=== PATIENT | male | born 1940 | race African-American/Black ===

== ENCOUNTER 2019-03-29 13:12 | Inpatient (IN) ==
[2019-03-29] MEDS ORDERED: hydrALAZINE 20 MG/1 ML VIAL IV STA (13:56)
[2019-03-29 14:56] LABS: Basophils # 0.1 10*3/uL (0.0-0.2); Basophils % 0.4 % (0.0-0.8); Eosinophils # 0.2 10*3/uL (0.0-0.87); Eosinophils % 1.9 % (0.00-10.9); Hematocrit 30.8 VOL% (42.0-52.0); Hemoglobin 9.3 GM/DL (14.0-18.0); Immature Granulocytes % 0.3 %; Immature Granulocytes Absolute 0.03 #; Lymphocytes # 0.6 10*3/uL (1.4-4.0); Lymphocytes % 5.3 % (21.2-54.2); Mean Corpuscular HGB Conc 30.2 GM/DL (32-36); Mean Corpuscular Volume 80.2 FL (87-102); Mean Platelet Volume 11.7 FL (9.6-12.0); Monocytes % 6.5 % (1.7-12.7); Neutrophils % 85.6 % (38.7-73.9); Platelet Count 172 T/CUMM (130-400); Red Blood Count 3.84 MC/CUMM (3.8-5.5); Red Cell Distribution Width 18.9 % (9.3-17.3); White Blood Count 11.3 T/CUMM (4-12)
[2019-03-29 15:24] LABS: Albumin 3.1 G/DL (3.4-5.0); Bilirubin,Total 1.3 MG/DL (0.2-1.0); Calcium 8.4 MG/DL (8.5-10.1); Osmolality,Calculated 276.1 MOS/KG (273-304); Thyroid Stimulating Hormone 1.48 uIU/ml (0.358-3.74)
[2019-03-29 15:30] LABS: Vitamin B12 1293 PG/ML (211-911)
[2019-03-29] MEDS ORDERED: ONDANSETRON 4 MG/2 ML VIAL IV STA (16:12)
[2019-03-29] MEDS ORDERED: ONDANSETRON 4 MG/2 ML VIAL ONE (16:13)
[2019-03-29] MEDS ORDERED: LACTULOSE 20 GM/30 ML UDCUP PO PRN (16:21)
[2019-03-29] MEDS ORDERED: ACETAMINOPHEN 325 MG TABLET PO PRN (16:21)
[2019-03-29] MEDS ORDERED: ONDANSETRON 4 MG/2 ML VIAL IV PRN (16:21)
[2019-03-29] MEDS ORDERED: GLUCAGON 1 MG VIAL IM PRN (16:21)
[2019-03-29] MEDS ORDERED: DEXTROSE 10% 250 ML BAG IV PRN (16:21)
[2019-03-29 16:47] LABS: Risk Ratio 2.47; VLDL CHOLESTEROL 15.2 MG/DL
[2019-03-29] MEDS: INSULIN REGULAR 100 UNIT/ML SUBCUT SCH ×2 (18:27→20:00)
[2019-03-29] MEDS: HEPARIN 5,000 UNIT/1 ML VIAL SUBCUT SCH (18:32)
[2019-03-29] MEDS: cloNIDine 0.1 MG TABLET PO SCH (21:12)
[2019-03-29] MEDS: PIPERACILLIN/TAZOBACTAM 3,375 MG in SODIUM CHLORIDE 0.9% 100 ML IV SCH (21:15)
[2019-03-29 21:48] LABS: Troponin I 0.028 NG/ML (0.00-0.045)
[2019-03-29] MEDS ORDERED: VANCOMYCIN INJ 1,750 MG in SODIUM CHLORIDE 0.9% 500 ML IV ONE (22:00)
[2019-03-30] MEDS: HEPARIN 5,000 UNIT/1 ML VIAL SUBCUT SCH ×3 (01:40→16:37)
[2019-03-30 05:03] LABS: Basophils # 0.1 10*3/uL (0.0-0.2); Basophils % 0.6 % (0.0-0.8); Eosinophils # 0.1 10*3/uL (0.0-0.87); Eosinophils % 1.3 % (0.00-10.9); Hematocrit 27.1 VOL% (42.0-52.0); Hemoglobin 8.4 GM/DL (14.0-18.0); Immature Granulocytes % 0.5 %; Immature Granulocytes Absolute 0.05 #; Lymphocytes # 0.6 10*3/uL (1.4-4.0); Lymphocytes % 6.2 % (21.2-54.2); Mean Corpuscular Volume 79.9 FL (87-102); Mean Platelet Volume 11.7 FL (9.6-12.0); Neutrophils % 82.4 % (38.7-73.9); Platelet Count 151 T/CUMM (130-400); Red Blood Count 3.39 MC/CUMM (3.8-5.5); Red Cell Distribution Width 18.9 % (9.3-17.3); White Blood Count 9.7 T/CUMM (4-12)
[2019-03-30 05:18] LABS: Calcium 7.9 MG/DL (8.5-10.1)
[2019-03-30] MEDS: INSULIN REGULAR 100 UNIT/ML SUBCUT SCH ×4 (10:27→21:18)
[2019-03-30] MEDS: PANTOPRAZOLE 40 MG TABLET PO SCH (10:32)
[2019-03-30] MEDS: cloNIDine 0.1 MG TABLET PO SCH ×2 (10:32→21:18)
[2019-03-30] MEDS: PIPERACILLIN/TAZOBACTAM 3,375 MG in SODIUM CHLORIDE 0.9% 100 ML IV SCH ×2 (10:34→21:17)
[2019-03-30] MEDS ORDERED: cloNIDine 0.1 MG TABLET PO ONE (12:02)
[2019-03-30] MEDS: ASPIRIN EC 81 MG TABLET PO SCH (12:36)
[2019-03-30] MEDS ORDERED: LORazepam 2 MG/1 ML VIAL IV ONE (14:00)
[2019-03-30] MEDS: FERROUS SULFATE 325 MG TABLET PO SCH ×2 (14:15→21:18)
[2019-03-30] MEDS: GABAPENTIN 100 MG CAPSULE PO SCH ×2 (14:15→21:18)
[2019-03-30] MEDS ORDERED: VANCOMYCIN INJ 750 MG in SODIUM CHLORIDE 0.9% 250 ML IV ONE (17:00)
[2019-03-30] MEDS ORDERED: VANCOMYCIN INJ 750 MG in SODIUM CHLORIDE 0.9% 250 ML IV PRN (17:00)
[2019-03-30] MEDS ORDERED: cloNIDine 0.1 MG TABLET PO PRN (18:00)
[2019-03-31] MEDS: HEPARIN 5,000 UNIT/1 ML VIAL SUBCUT SCH ×3 (00:50→17:21)
[2019-03-31 05:34] LABS: Calcium 8.3 MG/DL (8.5-10.1); Osmolality,Calculated 275.8 MOS/KG (273-304)
[2019-03-31 05:39] LABS: Basophils # 0.1 10*3/uL (0.0-0.2); Basophils % 0.3 % (0.0-0.8); Eosinophils # 0.1 10*3/uL (0.0-0.87); Eosinophils % 0.9 % (0.00-10.9); Hematocrit 25.7 VOL% (42.0-52.0); Immature Granulocytes % 0.5 %; Immature Granulocytes Absolute 0.08 #; Lymphocytes # 0.6 10*3/uL (1.4-4.0); Lymphocytes % 3.7 % (21.2-54.2); Mean Corpuscular HGB Conc 31.1 GM/DL (32-36); Mean Corpuscular Volume 80.3 FL (87-102); Mean Platelet Volume 11.8 FL (9.6-12.0); Monocytes % 5.6 % (1.7-12.7); Platelet Count 139 T/CUMM (130-400); Red Cell Distribution Width 18.8 % (9.3-17.3); White Blood Count 14.8 T/CUMM (4-12)
[2019-03-31 05:50] LABS: Hypochromasia 2+; Platelet Estimate Normal
[2019-03-31] MEDS: INSULIN REGULAR 100 UNIT/ML SUBCUT SCH ×4 (08:17→20:59)
[2019-03-31] MEDS: PIPERACILLIN/TAZOBACTAM 3,375 MG in SODIUM CHLORIDE 0.9% 100 ML IV SCH (09:12)
[2019-03-31] MEDS: GABAPENTIN 100 MG CAPSULE PO SCH ×3 (09:13→20:59)
[2019-03-31] MEDS: FERROUS SULFATE 325 MG TABLET PO SCH ×3 (09:13→20:59)
[2019-03-31] MEDS: PANTOPRAZOLE 40 MG TABLET PO SCH (09:13)
[2019-03-31] MEDS: ASPIRIN EC 81 MG TABLET PO SCH (09:13)
[2019-03-31] MEDS: cloNIDine 0.1 MG TABLET PO SCH ×2 (09:13→20:59)
[2019-03-31] MEDS ORDERED: cefTRIAXone 1,000 MG in SYRINGE 1 EACH IV SCH (17:30)
[2019-04-01] MEDS: HEPARIN 5,000 UNIT/1 ML VIAL SUBCUT SCH ×2 (00:34→14:01)
[2019-04-01 04:50] LABS: Basophils # 0.1 10*3/uL (0.0-0.2); Basophils % 0.8 % (0.0-0.8); Eosinophils # 0.4 10*3/uL (0.0-0.87); Eosinophils % 4.5 % (0.00-10.9); Hematocrit 24.9 VOL% (42.0-52.0); Hemoglobin 7.4 GM/DL (14.0-18.0); Immature Granulocytes % 0.4 %; Immature Granulocytes Absolute 0.03 #; Lymphocytes # 0.6 10*3/uL (1.4-4.0); Mean Corpuscular HGB Conc 29.7 GM/DL (32-36); Mean Corpuscular Volume 79.3 FL (87-102); Mean Platelet Volume 11.3 FL (9.6-12.0); Monocytes % 9.5 % (1.7-12.7); Neutrophils % 77.8 % (38.7-73.9); Platelet Count 147 T/CUMM (130-400); Red Blood Count 3.14 MC/CUMM (3.8-5.5); Red Cell Distribution Width 18.7 % (9.3-17.3)
[2019-04-01 05:16] LABS: Calcium 8.1 MG/DL (8.5-10.1); Osmolality,Calculated 280.8 MOS/KG (273-304)
[2019-04-01] MEDS: INSULIN REGULAR 100 UNIT/ML SUBCUT SCH ×2 (09:09→14:07)
[2019-04-01] MEDS ORDERED: TUBERCULIN SKIN TEST 0.1 ML SYRINGE INTRADERM ONE (10:57)
[2019-04-01 13:04] VITALS: BP 141/82
[2019-04-01] MEDS: cloNIDine 0.1 MG TABLET PO SCH (14:01)
[2019-04-01] MEDS: FERROUS SULFATE 325 MG TABLET PO SCH ×2 (14:01→14:11)
[2019-04-01] MEDS: GABAPENTIN 100 MG CAPSULE PO SCH ×2 (14:02→14:10)
[2019-04-01] MEDS: ASPIRIN EC 81 MG TABLET PO SCH (14:11)
[2019-04-01] MEDS: PANTOPRAZOLE 40 MG TABLET PO SCH (14:11)
== END 2019-04-01 15:30 | DRG 70 ==
LOC: N.ED 13:12 → N.EDINP 16:38 → SUATTDRO 16:38 → N.EDINP 17:30 → N.5E 17:41
PROVIDERS: ADMIT Internal Medicine; ATTEND Emergency Medicine

== ENCOUNTER 2019-07-24 13:24 | Observation (INO) ==
[2019-07-24 14:38] LABS: INR 1.1; PT Patient Result 12.2 SECS (9.6-12.2); Partial Thromboplastin Time 30.8 SECS (20.8-36.0)
[2019-07-24 14:59] LABS: Bilirubin,Total 1.7 MG/DL (0.2-1.0); Calcium 9.4 MG/DL (8.5-10.1); Total Protein 8.1 G/DL (6.4-8.3)
[2019-07-24 15:03] LABS: Basophils # 0.1 10*3/uL (0.0-0.2); Basophils % 0.6 % (0.0-0.8); Eosinophils # 0.7 10*3/uL (0.0-0.87); Eosinophils % 8.9 % (0.00-10.9); Hematocrit 34.4 VOL% (42.0-52.0); Immature Granulocytes % 0.3 %; Immature Granulocytes Absolute 0.02 #; Lymphocytes # 0.5 10*3/uL (1.4-4.0); Lymphocytes % 6.6 % (21.2-54.2); Mean Corpuscular Volume 81.9 FL (87-102); Mean Platelet Volume 10.9 FL (9.6-12.0); Monocytes % 8.2 % (1.7-12.7); Neutrophils % 75.4 % (38.7-73.9); Platelet Count 72 T/CUMM (130-400); White Blood Count 7.7 T/CUMM (4-12)
[2019-07-24 15:49] LABS: Giant Platelets Few; Platelet Estimate Decreased
[2019-07-24] MEDS: SILVER SULFADIAZINE 1% CREAM 25 GM TUBE TOP SCH (22:51)
[2019-07-25 05:34] LABS: Basophils # 0.1 10*3/uL (0.0-0.2); Eosinophils # 0.4 10*3/uL (0.0-0.87); Eosinophils % 7.5 % (0.00-10.9); Hematocrit 32.7 VOL% (42.0-52.0); Hemoglobin 10.4 GM/DL (14.0-18.0); Immature Granulocytes % 0.5 %; Immature Granulocytes Absolute 0.03 #; Lymphocytes # 0.8 10*3/uL (1.4-4.0); Lymphocytes % 13.3 % (21.2-54.2); Mean Corpuscular HGB Conc 31.8 GM/DL (32-36); Mean Corpuscular Volume 84.7 FL (87-102); Mean Platelet Volume 11.6 FL (9.6-12.0); Neutrophils % 64.7 % (38.7-73.9); Platelet Count 83 T/CUMM (130-400); Red Blood Count 3.86 MC/CUMM (3.8-5.5); Red Cell Distribution Width 17.6 % (9.3-17.3); White Blood Count 5.8 T/CUMM (4-12)
[2019-07-25 06:03] LABS: Calcium 9.1 MG/DL (8.5-10.1); Osmolality,Calculated 276.8 MOS/KG (273-304); Risk Ratio 2.42; Thyroid Stimulating Hormone 0.891 uIU/ml (0.358-3.74); VLDL CHOLESTEROL 11.4 MG/DL
[2019-07-25] MEDS: PANTOPRAZOLE 40 MG TABLET PO SCH (08:24)
[2019-07-25] MEDS: ENOXAPARIN 30 MG/0.3 ML SYRINGE SUBCUT SCH (08:27)
[2019-07-25] MEDS: SILVER SULFADIAZINE 1% CREAM 25 GM TUBE TOP SCH ×2 (08:27→22:21)
[2019-07-25] MEDS ORDERED: Sucroferric Oxyhydroxide [Velphoro] 500 MG PO SCH (15:00)
[2019-07-25] MEDS: GABAPENTIN 100 MG CAPSULE PO SCH ×2 (18:31→22:17)
[2019-07-25] MEDS: ACETAMINOPHEN 325 MG TABLET PO PRN (22:18)
[2019-07-25] MEDS: cloNIDine 0.1 MG TABLET PO SCH (22:18)
[2019-07-26 05:15] LABS: Basophils # 0.1 10*3/uL (0.0-0.2); Eosinophils # 0.3 10*3/uL (0.0-0.87); Hematocrit 32.5 VOL% (42.0-52.0); Hemoglobin 9.9 GM/DL (14.0-18.0); Immature Granulocytes % 0.2 %; Immature Granulocytes Absolute 0.01 #; Lymphocytes # 0.8 10*3/uL (1.4-4.0); Lymphocytes % 16.7 % (21.2-54.2); Mean Corpuscular HGB Conc 30.5 GM/DL (32-36); Mean Corpuscular Volume 82.5 FL (87-102); Monocytes % 12.4 % (1.7-12.7); Neutrophils % 62.7 % (38.7-73.9); Platelet Count 88 T/CUMM (130-400); Red Blood Count 3.94 MC/CUMM (3.8-5.5); Red Cell Distribution Width 16.8 % (9.3-17.3); White Blood Count 4.9 T/CUMM (4-12)
[2019-07-26 05:35] LABS: Hypochromasia 1+; Ovalocytes Slight; Platelet Estimate Decreased
[2019-07-26 05:36] LABS: Burr Cells Slight
[2019-07-26 05:43] LABS: Calcium 8.3 MG/DL (8.5-10.1); Osmolality,Calculated 277.1 MOS/KG (273-304)
[2019-07-26] MEDS ORDERED: ASPIRIN EC 81 MG TABLET PO SCH (09:00)
[2019-07-26] MEDS: GABAPENTIN 100 MG CAPSULE PO SCH (09:08)
[2019-07-26] MEDS: cloNIDine 0.1 MG TABLET PO SCH (09:09)
[2019-07-26] MEDS: ACETAMINOPHEN 325 MG TABLET PO PRN (09:09)
[2019-07-26] MEDS: PANTOPRAZOLE 40 MG TABLET PO SCH (09:09)
[2019-07-26] MEDS: ENOXAPARIN 30 MG/0.3 ML SYRINGE SUBCUT SCH (09:11)
[2019-07-26] MEDS: SILVER SULFADIAZINE 1% CREAM 25 GM TUBE TOP SCH (09:15)
[2019-07-26 11:58] VITALS: BP 184/78
== END 2019-07-26 14:20 | disposition home or self-care (01) ==
LOC: N.ED 13:24 → N.EDINP 13:24 → SUATTDRO 15:55 → N.3E 17:34
PROVIDERS: ADMIT Internal Medicine; ATTEND Internal Medicine

== ENCOUNTER 2019-09-08 14:23 | Inpatient (IN) ==
[2019-09-08 16:51] LABS: Basophils % 0.9 % (0.0-0.8); Eosinophils # 0.3 10*3/uL (0.0-0.87); Hematocrit 36.7 VOL% (42.0-52.0); Hemoglobin 11.6 GM/DL (14.0-18.0); Immature Granulocytes % 0.7 %; Immature Granulocytes Absolute 0.03 #; Lymphocytes # 0.9 10*3/uL (1.4-4.0); Lymphocytes % 21.1 % (21.2-54.2); Mean Corpuscular HGB Conc 31.6 GM/DL (32-36); Mean Corpuscular Volume 80.1 FL (87-102); Mean Platelet Volume 11.5 FL (9.6-12.0); Monocytes % 12.8 % (1.7-12.7); Neutrophils % 57.5 % (38.7-73.9); Platelet Count 154 T/CUMM (130-400); Red Blood Count 4.58 MC/CUMM (3.8-5.5); Red Cell Distribution Width 20.2 % (9.3-17.3); White Blood Count 4.5 T/CUMM (4-12)
[2019-09-08 16:58] LABS: Apearance,Urine Slightly Hazy (Clear); Bacteria,Urine Occasional /HPF (Few); Bilirubin,Urine Negative (Negative); Blood, Urine Large mg/dL (Negative); Glucose,Urine (UA) Negative (Negative); Hyaline Casts,Urine 1 /LPF (0-3); Ketones,Urine Negative (Negative); Nitrite,Urine Negative (Negative); Protein,Urine 100 MG/DL; RBC,Urine 117 /HPF (0-4); Squamous Epithelial Cell,Urine Occasional /HPF (0-10); Urine Color Yellow (Yellow); Urine Specific Gravity 1.008 (1.001-1.035); Urine Urobilinogen < 2.0 EU/DL (0.2-1.0); WBC,Urine 147 /HPF (0-6)
[2019-09-08 17:01] LABS: Albumin 2.6 G/DL (3.4-5.0); Bilirubin,Total 1.4 MG/DL (0.2-1.0); Calcium 8.5 MG/DL (8.5-10.1); Osmolality,Calculated 277.2 MOS/KG (273-304); Total Protein 8.6 G/DL (6.4-8.3)
[2019-09-08] MEDS ORDERED: cefTRIAXone 1,000 MG in SODIUM CHLORIDE 0.9% 100 ML IV STA (17:11)
[2019-09-08] MEDS ORDERED: VANCOMYCIN INJ 1,000 MG in SODIUM CHLORIDE 0.9% 250 ML IV STA ×2 (17:11→17:13)
[2019-09-08] MEDS ORDERED: ONDANSETRON 4 MG/2 ML VIAL IV PRN (17:59)
[2019-09-08] MEDS ORDERED: DEXTROSE 10% 250 ML BAG IV PRN (17:59)
[2019-09-08] MEDS ORDERED: ACETAMINOPHEN 325 MG TABLET PO PRN (17:59)
[2019-09-08] MEDS ORDERED: GLUCAGON 1 MG VIAL IM PRN (17:59)
[2019-09-08] MEDS: ALBUTEROL/IPRATROPIUM 3 ML NEB RESP TX SCH (19:03)
[2019-09-08 19:34] LABS: Platelet Estimate Normal
[2019-09-08 19:35] LABS: Anisocytosis 2+; Poikilocytosis Slight; Polychromasia 1+; Target Cells Slight
[2019-09-08 19:36] LABS: Hypochromasia 2+; Microcytosis 1+; Schistocytes Few
[2019-09-08 19:37] LABS: Spherocytes 1+
[2019-09-08] MEDS: cloNIDine 0.1 MG TABLET PO SCH (22:12)
[2019-09-08] MEDS: HEPARIN 5,000 UNIT/1 ML VIAL SUBCUT SCH (22:12)
[2019-09-08] MEDS: INSULIN REGULAR 100 UNIT/ML SUBCUT SCH (22:12)
[2019-09-08] MEDS: LACTULOSE 20 GM/30 ML UDCUP PO SCH (22:12)
[2019-09-09] MEDS ORDERED: LEVOFLOXACIN INJ 500 MG in PREMIX 1 EACH IV ONE
[2019-09-09] MEDS: ALBUTEROL/IPRATROPIUM 3 ML NEB RESP TX SCH ×4 (00:20→20:25)
[2019-09-09] MEDS: PIPERACILLIN/TAZOBACTAM 3,375 MG in SODIUM CHLORIDE 0.9% 100 ML IV SCH ×2 (00:56→15:55)
[2019-09-09] MEDS ORDERED: VANCOMYCIN INJ 750 MG in SODIUM CHLORIDE 0.9% 250 ML IV ONE ×2 (04:00→17:00)
[2019-09-09] MEDS: HEPARIN 5,000 UNIT/1 ML VIAL SUBCUT SCH ×3 (04:31→21:44)
[2019-09-09 05:32] LABS: Basophils % 0.4 % (0.0-0.8); Eosinophils # 0.3 10*3/uL (0.0-0.87); Eosinophils % 3.1 % (0.00-10.9); Hematocrit 34.4 VOL% (42.0-52.0); Hemoglobin 10.5 GM/DL (14.0-18.0); Immature Granulocytes % 0.5 %; Immature Granulocytes Absolute 0.05 #; Lymphocytes # 0.5 10*3/uL (1.4-4.0); Lymphocytes % 5.8 % (21.2-54.2); Mean Corpuscular HGB Conc 30.5 GM/DL (32-36); Mean Corpuscular Volume 79.4 FL (87-102); Mean Platelet Volume 11.2 FL (9.6-12.0); Monocytes % 9.9 % (1.7-12.7); Neutrophils % 80.3 % (38.7-73.9); Platelet Count 154 T/CUMM (130-400); Red Blood Count 4.33 MC/CUMM (3.8-5.5); Red Cell Distribution Width 19.2 % (9.3-17.3); White Blood Count 9.2 T/CUMM (4-12)
[2019-09-09 06:06] LABS: Calcium 8.1 MG/DL (8.5-10.1); Osmolality,Calculated 279.2 MOS/KG (273-304)
[2019-09-09] MEDS: INSULIN REGULAR 100 UNIT/ML SUBCUT SCH ×4 (07:45→21:42)
[2019-09-09] MEDS: ASPIRIN EC 81 MG TABLET PO SCH (09:09)
[2019-09-09] MEDS: LACTULOSE 20 GM/30 ML UDCUP PO SCH ×2 (09:09→21:42)
[2019-09-09] MEDS: CINACALCET 30 MG TABLET PO SCH (09:09)
[2019-09-09] MEDS: SILVER SULFADIAZINE 1% CREAM 25 GM TUBE TOP SCH (09:10)
[2019-09-09] MEDS: PANTOPRAZOLE 40 MG TABLET PO SCH (09:10)
[2019-09-09] MEDS: cloNIDine 0.1 MG TABLET PO SCH ×2 (09:10→21:44)
[2019-09-09] MEDS: MULTIVITAMIN (BEROCCA) TABLET PO SCH ×3 (09:10→16:01)
[2019-09-09] MEDS ORDERED: SKIN HEALING OINT (AQUAPHOR) 50 GM TUBE TOP PRN (12:50)
[2019-09-09] MEDS ORDERED: TUBERCULIN SKIN TEST 0.1 ML SYRINGE INTRADERM ONE (15:55)
[2019-09-09] MEDS ORDERED: VANCOMYCIN INJ 750 MG in SODIUM CHLORIDE 0.9% 250 ML IV PRN (17:00)
[2019-09-10] MEDS: PIPERACILLIN/TAZOBACTAM 3,375 MG in SODIUM CHLORIDE 0.9% 100 ML IV SCH (01:36)
[2019-09-10] MEDS: ALBUTEROL/IPRATROPIUM 3 ML NEB RESP TX SCH ×4 (01:51→20:25)
[2019-09-10] MEDS: HEPARIN 5,000 UNIT/1 ML VIAL SUBCUT SCH ×3 (05:47→20:52)
[2019-09-10] MEDS: INSULIN REGULAR 100 UNIT/ML SUBCUT SCH ×4 (08:07→20:54)
[2019-09-10] MEDS ORDERED: REGADENOSON 0.4 MG/5 ML SYRINGE IV ONE (09:13)
[2019-09-10] MEDS ORDERED: DEXTROSE 50% 25 GM/50 ML VIAL IV PRN (10:50)
[2019-09-10] MEDS: LACTULOSE 20 GM/30 ML UDCUP PO SCH (10:53)
[2019-09-10] MEDS: METOPROLOL SUCCINATE XL 25 MG TABLET PO SCH (10:53)
[2019-09-10] MEDS: ASPIRIN EC 81 MG TABLET PO SCH (10:53)
[2019-09-10] MEDS: MULTIVITAMIN (BEROCCA) TABLET PO SCH ×3 (10:53→16:19)
[2019-09-10] MEDS: CINACALCET 30 MG TABLET PO SCH (10:53)
[2019-09-10] MEDS: PANTOPRAZOLE 40 MG TABLET PO SCH (10:54)
[2019-09-10] MEDS: cloNIDine 0.1 MG TABLET PO SCH ×2 (10:54→20:54)
[2019-09-10] MEDS: SILVER SULFADIAZINE 1% CREAM 25 GM TUBE TOP SCH (10:55)
[2019-09-10 11:15] LABS: Immunoglobulin A 576 MG/DL (70-400); Immunoglobulin G 2290 MG/DL (700-1600); Immunoglobulin M 119 MG/DL (40-230)
[2019-09-10 11:55] LABS: Immunoglobulin A (Chem) 576 MG/DL (70-400); Immunoglobulin G (Chem) 2290 MG/DL (700-1600); Immunoglobulin M (Chem) 119 MG/DL (40-230)
[2019-09-11] MEDS: LEVOFLOXACIN INJ 250 MG in PREMIX 1 EACH IV SCH (00:37)
[2019-09-11] MEDS: ALBUTEROL/IPRATROPIUM 3 ML NEB RESP TX SCH ×4 (01:44→18:58)
[2019-09-11] MEDS: HEPARIN 5,000 UNIT/1 ML VIAL SUBCUT SCH ×3 (07:25→20:12)
[2019-09-11] MEDS: INSULIN REGULAR 100 UNIT/ML SUBCUT SCH ×4 (07:37→20:12)
[2019-09-11] MEDS: CINACALCET 30 MG TABLET PO SCH (08:52)
[2019-09-11] MEDS: PANTOPRAZOLE 40 MG TABLET PO SCH (08:52)
[2019-09-11] MEDS: MULTIVITAMIN (BEROCCA) TABLET PO SCH ×3 (08:52→16:47)
[2019-09-11] MEDS: SILVER SULFADIAZINE 1% CREAM 25 GM TUBE TOP SCH (08:52)
[2019-09-11] MEDS: cloNIDine 0.1 MG TABLET PO SCH ×2 (08:52→20:12)
[2019-09-11] MEDS: ASPIRIN EC 81 MG TABLET PO SCH (08:52)
[2019-09-11] MEDS: METOPROLOL SUCCINATE XL 25 MG TABLET PO SCH (08:52)
[2019-09-11] MEDS ORDERED: VANCOMYCIN INJ 750 MG in SODIUM CHLORIDE 0.9% 250 ML IV ONE (17:00)
[2019-09-12] MEDS: ALBUTEROL/IPRATROPIUM 3 ML NEB RESP TX SCH ×4 (00:56→20:40)
[2019-09-12] MEDS: HEPARIN 5,000 UNIT/1 ML VIAL SUBCUT SCH ×3 (05:03→20:28)
[2019-09-12 08:18] VITALS: BP 166/86
[2019-09-12] MEDS: INSULIN REGULAR 100 UNIT/ML SUBCUT SCH ×4 (08:40→20:29)
[2019-09-12] MEDS: MULTIVITAMIN (BEROCCA) TABLET PO SCH ×3 (10:03→17:52)
[2019-09-12] MEDS: METOPROLOL SUCCINATE XL 25 MG TABLET PO SCH (10:04)
[2019-09-12] MEDS: SILVER SULFADIAZINE 1% CREAM 25 GM TUBE TOP SCH (10:04)
[2019-09-12] MEDS: PANTOPRAZOLE 40 MG TABLET PO SCH (10:04)
[2019-09-12] MEDS: CINACALCET 30 MG TABLET PO SCH (10:04)
[2019-09-12] MEDS: cloNIDine 0.1 MG TABLET PO SCH ×2 (10:04→20:28)
[2019-09-12] MEDS: ASPIRIN EC 81 MG TABLET PO SCH (10:04)
[2019-09-12] MEDS: LEVOFLOXACIN INJ 250 MG in PREMIX 1 EACH IV SCH (23:57)
[2019-09-13] MEDS: ALBUTEROL/IPRATROPIUM 3 ML NEB RESP TX SCH ×3 (02:10→14:30)
[2019-09-13] MEDS: HEPARIN 5,000 UNIT/1 ML VIAL SUBCUT SCH ×2 (05:11→14:40)
[2019-09-13 06:01] LABS: Basophils % 1.1 % (0.0-0.8); Eosinophils # 0.4 10*3/uL (0.0-0.87); Eosinophils % 10.8 % (0.00-10.9); Hematocrit 34.8 VOL% (42.0-52.0); Hemoglobin 10.7 GM/DL (14.0-18.0); Immature Granulocytes % 0.3 %; Immature Granulocytes Absolute 0.01 #; Lymphocytes # 0.8 10*3/uL (1.4-4.0); Mean Corpuscular HGB Conc 30.7 GM/DL (32-36); Mean Platelet Volume 9.8 FL (9.6-12.0); Monocytes % 12.6 % (1.7-12.7); Neutrophils % 53.2 % (38.7-73.9); Platelet Count 138 T/CUMM (130-400); Red Blood Count 4.35 MC/CUMM (3.8-5.5); Red Cell Distribution Width 18.6 % (9.3-17.3); White Blood Count 3.7 T/CUMM (4-12)
[2019-09-13 06:21] LABS: Calcium 7.6 MG/DL (8.5-10.1); Osmolality,Calculated 277.8 MOS/KG (273-304)
[2019-09-13] MEDS: INSULIN REGULAR 100 UNIT/ML SUBCUT SCH ×3 (08:35→17:46)
[2019-09-13] MEDS: cloNIDine 0.1 MG TABLET PO SCH (08:36)
[2019-09-13] MEDS: PANTOPRAZOLE 40 MG TABLET PO SCH (08:36)
[2019-09-13] MEDS: MULTIVITAMIN (BEROCCA) TABLET PO SCH ×3 (08:36→17:46)
[2019-09-13] MEDS: SILVER SULFADIAZINE 1% CREAM 25 GM TUBE TOP SCH (08:36)
[2019-09-13] MEDS: CINACALCET 30 MG TABLET PO SCH (08:36)
[2019-09-13] MEDS: ASPIRIN EC 81 MG TABLET PO SCH (08:36)
[2019-09-13] MEDS: METOPROLOL SUCCINATE XL 25 MG TABLET PO SCH (08:36)
[2019-09-13] MEDS ORDERED: METOPROLOL SUCCINATE XL 25 MG TABLET PO ONE (13:08)
[2019-09-14] MEDS ORDERED: METOPROLOL SUCCINATE XL 50 MG TABLET PO SCH (09:00)
[2019-09-16 16:46] LABS: QuantiFERON-Tb Gold Pl Positive (Negative)
== END 2019-09-13 19:02 | disposition home or self-care (01) | DRG 177 ==
LOC: N.ED 14:23 → SUATTDRO 17:59 → N.EDINP 17:59 → N.5E 18:35 → N.CC 09-11 19:36
PROVIDERS: ADMIT Internal Medicine Cardiovascular Disease; ATTEND Internal Medicine

== ENCOUNTER 2019-10-19 11:21 | Inpatient (IN) ==
[2019-10-19] MEDS ORDERED: SODIUM CHLORIDE 0.9% 250 ML IV STA (12:12)
[2019-10-19 12:19] LABS: Eosinophils # 0.1 10*3/uL (0.0-0.87); Eosinophils % 3.1 % (0.00-10.9); Hematocrit 30.7 VOL% (42.0-52.0); Immature Granulocytes % 0.5 %; Immature Granulocytes Absolute 0.02 #; Lymphocytes # 0.6 10*3/uL (1.4-4.0); Lymphocytes % 13.2 % (21.2-54.2); Mean Corpuscular HGB Conc 32.6 GM/DL (32-36); Mean Corpuscular Volume 80.6 FL (87-102); Mean Platelet Volume 11.4 FL (9.6-12.0); Monocytes % 14.9 % (1.7-12.7); Neutrophils % 67.3 % (38.7-73.9); Platelet Count 145 T/CUMM (130-400); Red Blood Count 3.81 MC/CUMM (3.8-5.5); Red Cell Distribution Width 17.6 % (9.3-17.3); White Blood Count 4.2 T/CUMM (4-12)
[2019-10-19 12:33] LABS: Albumin 2.6 G/DL (3.4-5.0); Bilirubin,Total 1.4 MG/DL (0.2-1.0); Calcium 9.1 MG/DL (8.5-10.1); Osmolality,Calculated 260.1 MOS/KG (273-304); Total Protein 8.4 G/DL (6.4-8.3)
[2019-10-19] MEDS ORDERED: GLUCAGON 1 MG VIAL IM PRN (14:24)
[2019-10-19] MEDS ORDERED: ACETAMINOPHEN 325 MG TABLET PO PRN (14:24)
[2019-10-19] MEDS ORDERED: DEXTROSE 50% 25 GM/50 ML VIAL IV PRN (14:24)
[2019-10-19] MEDS ORDERED: ONDANSETRON 4 MG/2 ML VIAL IV PRN (14:24)
[2019-10-19] MEDS: cefTRIAXone 1,000 MG in SYRINGE 1 EACH IV SCH (17:00)
[2019-10-19] MEDS: MULTIVITAMIN (BEROCCA) TABLET PO SCH (17:01)
[2019-10-19] MEDS: NON-FORMULARY MEDICATION (Sucroferric Oxyhydroxide [Velphoro] 500 MG) PO SCH ×2 (17:06→21:45)
[2019-10-19] MEDS: INSULIN LISPRO 100 UNIT/ML SUBCUT SCH ×2 (17:20→21:45)
[2019-10-19] MEDS ORDERED: VANCOMYCIN INJ 1,500 MG in SODIUM CHLORIDE 0.9% 500 ML IV ONE (18:00)
[2019-10-19 18:51] LABS: HIV Antigen/Antibody Result Nonreactive (Nonreactive)
[2019-10-19] MEDS: ALBUTEROL/IPRATROPIUM 3 ML NEB RESP TX SCH (20:58)
[2019-10-20] MEDS: ALBUTEROL/IPRATROPIUM 3 ML NEB RESP TX SCH ×4 (02:02→19:14)
[2019-10-20 05:01] LABS: Basophils # 0.1 10*3/uL (0.0-0.2); Eosinophils # 0.1 10*3/uL (0.0-0.87); Eosinophils % 1.7 % (0.00-10.9); Hematocrit 34.6 VOL% (42.0-52.0); Hemoglobin 11.1 GM/DL (14.0-18.0); Immature Granulocytes % 0.3 %; Immature Granulocytes Absolute 0.02 #; Lymphocytes # 0.6 10*3/uL (1.4-4.0); Lymphocytes % 9.8 % (21.2-54.2); Mean Corpuscular HGB Conc 32.1 GM/DL (32-36); Mean Corpuscular Volume 81.6 FL (87-102); Mean Platelet Volume 11.9 FL (9.6-12.0); Monocytes % 20.6 % (1.7-12.7); Neutrophils % 66.6 % (38.7-73.9); Platelet Count 146 T/CUMM (130-400); Red Blood Count 4.24 MC/CUMM (3.8-5.5); Red Cell Distribution Width 18.2 % (9.3-17.3); White Blood Count 5.9 T/CUMM (4-12)
[2019-10-20 05:24] LABS: Calcium 8.9 MG/DL (8.5-10.1); Osmolality,Calculated 260.9 MOS/KG (273-304)
[2019-10-20 05:34] LABS: Eosinophils 3 % (0-10); Hypochromasia 1+; Lymphocytes 7 % (20-55); Microcytosis 1+; Segmented Neutrophils 72 % (50-85); Total Cells Counted 100
[2019-10-20 05:35] LABS: Anisocytosis 1+; Ovalocytes Slight; Platelet Estimate Adequate
[2019-10-20] MEDS: PANTOPRAZOLE 40 MG TABLET PO SCH (10:12)
[2019-10-20] MEDS: POTASSIUM CHLORIDE 20 MEQ TABLET PO SCH (10:12)
[2019-10-20] MEDS: ASPIRIN EC 81 MG TABLET PO SCH (10:12)
[2019-10-20] MEDS: CINACALCET 30 MG TABLET PO SCH (10:15)
[2019-10-20] MEDS: NON-FORMULARY MEDICATION (Sucroferric Oxyhydroxide [Velphoro] 500 MG) PO SCH ×3 (10:16→20:22)
[2019-10-20] MEDS: ISONIAZID 300 MG TABLET PO SCH (10:16)
[2019-10-20] MEDS: MULTIVITAMIN (BEROCCA) TABLET PO SCH ×3 (10:16→18:01)
[2019-10-20 10:20] LABS: Albumin 2.4 G/DL (3.4-5.0); Total Protein 8.6 G/DL (6.4-8.3)
[2019-10-20 11:32] LABS: Total Protein,Body Fluid 3.3 G/DL
[2019-10-20] MEDS ORDERED: VANCOMYCIN INJ 500 MG in SODIUM CHLORIDE 0.9% 100 ML IV PRN (13:24)
[2019-10-20 14:01] LABS: Lymphocytes,Pleural Fluid 77 %; Monocytes,Pleural Fluid 18 %; Neutrophils,Pleural Fluid 5 %
[2019-10-20 14:02] LABS: RBC,Pleural Fluid 2008 T/CUMM
[2019-10-20] MEDS ORDERED: MAGNESIUM SULF RIDER 2 GM in PREMIX 1 EACH IV PRN (14:28)
[2019-10-20] MEDS ORDERED: MAGNESIUM SULF RIDER 4 GM in PREMIX 1 EACH IV PRN (14:28)
[2019-10-20] MEDS: cefTRIAXone 1,000 MG in SYRINGE 1 EACH IV SCH (17:56)
[2019-10-20] MEDS: hydrALAZINE 25 MG TABLET PO SCH ×2 (17:56→20:20)
[2019-10-20] MEDS ORDERED: VANCOMYCIN INJ 1,250 MG in SODIUM CHLORIDE 0.9% 250 ML IV ONE (19:00)
[2019-10-21] MEDS: ALBUTEROL/IPRATROPIUM 3 ML NEB RESP TX SCH ×4 (00:06→20:55)
[2019-10-21] MEDS ORDERED: LORazepam 2 MG/1 ML VIAL IV ONE (08:23)
[2019-10-21 08:49] LABS: Basophils % 0.6 % (0.0-0.8); Eosinophils # 0.1 10*3/uL (0.0-0.87); Eosinophils % 2.4 % (0.00-10.9); Hematocrit 30.7 VOL% (42.0-52.0); Hemoglobin 9.8 GM/DL (14.0-18.0); Immature Granulocytes % 0.4 %; Immature Granulocytes Absolute 0.02 #; Lymphocytes # 0.8 10*3/uL (1.4-4.0); Lymphocytes % 14.2 % (21.2-54.2); Mean Corpuscular HGB Conc 31.9 GM/DL (32-36); Mean Corpuscular Volume 80.6 FL (87-102); Mean Platelet Volume 11.5 FL (9.6-12.0); Monocytes % 13.1 % (1.7-12.7); Neutrophils % 69.3 % (38.7-73.9); Platelet Count 170 T/CUMM (130-400); Red Blood Count 3.81 MC/CUMM (3.8-5.5); Red Cell Distribution Width 18.3 % (9.3-17.3); White Blood Count 5.4 T/CUMM (4-12)
[2019-10-21 09:10] LABS: Albumin 2.5 G/DL (3.4-5.0); Calcium 8.6 MG/DL (8.5-10.1); Osmolality,Calculated 265.9 MOS/KG (273-304); Total Protein 8.4 G/DL (6.4-8.3)
[2019-10-21] MEDS: PANTOPRAZOLE 40 MG TABLET PO SCH (09:58)
[2019-10-21] MEDS: hydrALAZINE 25 MG TABLET PO SCH ×3 (09:58→21:37)
[2019-10-21] MEDS: ASPIRIN EC 81 MG TABLET PO SCH (09:58)
[2019-10-21] MEDS: MULTIVITAMIN (BEROCCA) TABLET PO SCH ×3 (09:58→18:05)
[2019-10-21] MEDS: CINACALCET 30 MG TABLET PO SCH (09:58)
[2019-10-21] MEDS: POTASSIUM CHLORIDE 20 MEQ TABLET PO SCH (09:58)
[2019-10-21] MEDS: ISONIAZID 300 MG TABLET PO SCH (09:58)
[2019-10-21] MEDS: NON-FORMULARY MEDICATION (Sucroferric Oxyhydroxide [Velphoro] 500 MG) PO SCH ×3 (10:00→21:41)
[2019-10-21] MEDS: METOPROLOL SUCCINATE XL 25 MG TABLET PO SCH (16:26)
[2019-10-21] MEDS: cefTRIAXone 1,000 MG in SYRINGE 1 EACH IV SCH (16:27)
[2019-10-21] MEDS ORDERED: VANCOMYCIN INJ 500 MG in SODIUM CHLORIDE 0.9% 100 ML IV ONE (17:00)
[2019-10-22] MEDS: ALBUTEROL/IPRATROPIUM 3 ML NEB RESP TX SCH ×3 (01:02→15:30)
[2019-10-22 06:26] LABS: Basophils % 0.6 % (0.0-0.8); Eosinophils # 0.2 10*3/uL (0.0-0.87); Eosinophils % 2.7 % (0.00-10.9); Hematocrit 32.4 VOL% (42.0-52.0); Hemoglobin 10.2 GM/DL (14.0-18.0); Immature Granulocytes % 0.3 %; Immature Granulocytes Absolute 0.02 #; Lymphocytes # 0.6 10*3/uL (1.4-4.0); Lymphocytes % 9.1 % (21.2-54.2); Mean Corpuscular HGB Conc 31.5 GM/DL (32-36); Mean Corpuscular Volume 81.4 FL (87-102); Monocytes % 13.4 % (1.7-12.7); Neutrophils % 73.9 % (38.7-73.9); Platelet Count 184 T/CUMM (130-400); Red Blood Count 3.98 MC/CUMM (3.8-5.5); Red Cell Distribution Width 18.6 % (9.3-17.3); White Blood Count 6.3 T/CUMM (4-12)
[2019-10-22 06:47] LABS: Calcium 8.6 MG/DL (8.5-10.1); Osmolality,Calculated 267.5 MOS/KG (273-304)
[2019-10-22] MEDS: ASPIRIN EC 81 MG TABLET PO SCH (09:20)
[2019-10-22] MEDS: CINACALCET 30 MG TABLET PO SCH (09:20)
[2019-10-22] MEDS: ISONIAZID 300 MG TABLET PO SCH (09:20)
[2019-10-22] MEDS: PANTOPRAZOLE 40 MG TABLET PO SCH (09:21)
[2019-10-22] MEDS: hydrALAZINE 25 MG TABLET PO SCH ×2 (09:21→14:34)
[2019-10-22] MEDS: POTASSIUM CHLORIDE 20 MEQ TABLET PO SCH (09:21)
[2019-10-22] MEDS: MULTIVITAMIN (BEROCCA) TABLET PO SCH ×2 (09:21→12:49)
[2019-10-22] MEDS: METOPROLOL SUCCINATE XL 25 MG TABLET PO SCH (09:21)
[2019-10-22] MEDS: NON-FORMULARY MEDICATION (Sucroferric Oxyhydroxide [Velphoro] 500 MG) PO SCH ×2 (09:22→14:36)
[2019-10-22 11:54] VITALS: BP 141/74
[2019-10-22] MEDS: cefTRIAXone 1,000 MG in SYRINGE 1 EACH IV SCH (16:01)
[2019-10-27 14:54] LABS: Histoplasma Immnodiffusion Negative (Negative)
== END 2019-10-22 16:48 | DRG 193 ==
LOC: EDBD → EDUNIT# → N.ED 11:21 → N.EDINP 14:24 → SUATTDRO 14:24 → SUPCPDRO 14:24 → N.TELES 16:08
PROVIDERS: ADMIT Nurse Practitioner Family; ATTEND Internal Medicine Cardiovascular Disease